=== PATIENT | female | born 1985 | race American Indian/Alaskan Native ===

== ENCOUNTER 2020-05-09 12:37 | Emergency (ER) | payer SELFPAY | END 2020-05-09 13:59 | disposition left against medical advice (07) | LOC: ED 12:37 | DX: R06.02 Shortness of breath (principal); Z53.21 Procedure and treatment not carried out due to patient leaving prior to being seen by health care provider ==

== ENCOUNTER 2021-05-05 03:51 | Emergency (ER) | payer OTHER ==
[2021-05-05 04:05] VITALS: BP 143/96
[2021-05-05] MEDS ORDERED: predniSONE 20 MG TAB PO ONE (04:27)
[2021-05-05] MEDS ORDERED: IBUPROFEN 800 MG TAB PO ONE (04:27)
--- NOTE | 2021-05-05 04:27 | Emergency Department Report ---
ED Extremity Problem HPI - General Chief complaint: Arrhythmia/Palpitations Stated complaint: HIGH HR LEFT ARM ISSUES Time Seen by Provider: 05/05/21 04:13 Source: patient Mode of arrival: Ambulatory Limitations: No Limitations - History of Present Illness Initial comments: 36-year-old female presents to ED with left arm pain for approximately 10 days. Patient states she has been having pain in the left shoulder that radiates down to her fingers with associated numbness and tingling. Patient reports a tip of her index finger is numb and the rest of her fingers are tingling. This morning, patient states she was asleep, but woke up with pain in the arm. She checked her watch and it showed that her heart rate was in the 130s, however patient states that she was definitely in pain at this time and worrying about what could possibly be causing her symptoms. Patient denies any chest pain or palpitations. Patient denies any neck pain, or injury to her neck or shoulder. MD Complaint: extremity pain -: days(s) (10) Location: left, upper extremity History of Same: No -: No fever, No associated dyspnea, No associated chest pain Radiation: distal Quality: aching, sharp Consistency: intermittent Improves with: nothing Worsens with: nothing Associated Symptoms: denies: chest pain, shortness of breath, fever, rash - Related Data Previous Rx's Medication Instructions Recorded Last Taken Type Naproxen [Naprosyn] 500 mg PO BID #20 tablet 05/05/21 Unknown Rx predniSONE [Deltasone] 50 mg PO QDAY #4 tab 05/05/21 Unknown Rx Allergies Allergy/AdvReac Type Severity Reaction Status Date / Time No Known Allergies Allergy Unverified 05/05/21 04:01 ED Review of Systems ROS: Stated complaint: HIGH HR LEFT ARM ISSUES Other details as noted in HPI Comment: All other systems reviewed and negative Cardiovascular: denies: palpitations Musculoskeletal: as per HPI Neurological: paresthesias ED Past Medical Hx - Past Medical History Additional medical history: L tricuspid valve leak - Surgical History Past Surgical History?: No - Social History Smoking Status: Current Every Day Smoker Substance Use Type: None - Medications Home Medications: Home Medications Medication Instructions Recorded Confirmed Last Taken Type Naproxen [Naprosyn] 500 mg PO BID #20 tablet 05/05/21 Unknown Rx predniSONE [Deltasone] 50 mg PO QDAY #4 tab 05/05/21 Unknown Rx ED Physical Exam - General Limitations: No Limitations General appearance: alert, in no apparent distress - Head Head exam: Present: atraumatic, normocephalic - Eye Eye exam: Present: normal appearance, EOMI - ENT ENT exam: Present: mucous membranes moist - Neck Neck exam: Present: normal inspection, full ROM. Absent: tenderness - Respiratory Respiratory exam: Present: normal lung sounds bilaterally. Absent: respiratory distress - Cardiovascular Cardiovascular Exam: Present: normal rhythm, tachycardia - GI/Abdominal GI/Abdominal exam: Absent: distended - Extremities Exam Extremities exam: Present: normal inspection, full ROM - Neurological Exam Neurological exam: Present: alert, oriented X3, motor sensory deficit (Patient reports numbness to the left fingertip, tingling sensations and rest of fingers; strength 5/5 in the left arm, hand, and fingers) - Psychiatric Psychiatric exam: Present: normal affect, normal mood - Skin Skin exam: Present: warm, dry, intact, normal color ED Course Vital Signs 05/05/21 03:57 Temperature 97.7 F Pulse Rate 109 H Respiratory 18 Rate Blood Pressure 143/96 O2 Sat by Pulse 100 Oximetry ED Medical Decision Making - Medical Decision Making 36-year-old female presents to ED with radiating pain from left shoulder down to the hand. Patient reports associated paresthesias as well. Strength is 5 out of 5, range of motion intact. Possible cervical radiculopathy. Patient states she came to the ED because her heart rate monitor on her watch showed that she was tachycardic with a rate in the 130s. Heart rate has improved at this time. Likely elevated secondary to pain and patient worrying about her condition. Patient will be discharged at this time with prescriptions. Outpatient follow- up advised, return precautions given. - Differential Diagnosis Cervical radiculopathy, peripheral neuropathy Critical care attestation.: If time is entered above; I have spent that time in minutes in the direct care of this critically ill patient, excluding procedure time. ED Disposition Clinical Impression: Cervical radiculopathy Disposition: 01 HOME / SELF CARE / HOMELESS Is pt being admited?: No Condition: Stable Instructions: Cervical Radiculopathy, [id number] Prescriptions: predniSONE [Deltasone] 50 mg PO QDAY #4 tab Naproxen [Naprosyn] 500 mg PO BID #20 tablet Referrals: DORIAN SOTO II, MD [Staff Physician] - 3-5 Days [facility] [Provider Group] - 3-5 Days Time of Disposition: 04:29
== END 2021-05-05 05:05 | disposition home or self-care (01) ==
LOC: ED 03:51
DX: M54.12 Radiculopathy, cervical region (principal); F17.200 Nicotine dependence, unspecified, uncomplicated
CPT/HCPCS: 99282; J7512